=== PATIENT | male | born 1995 | race Caucasian/White ===

== ENCOUNTER 2017-04-20 18:34 | Emergency (ER) | payer SELFPAY ==
[2017-04-20 19:27] VITALS: BP 130/74
[2017-04-20] MEDS ORDERED: Tetan/Diph/Pertus SYR(Tdap)* 0.5 ML SYR(BOOSTRIX) use SYR IM ONE (20:11)
[2017-04-20] MEDS ORDERED: Lidocaine 1% MPF* 2 ML VIAL INJ ONE (20:12)
--- NOTE | 2017-04-20 21:07 | UC ---
Laceration HPI - HPI Summary HPI Summary: Right middle finger laceration happened about 1 hour ago at work - History Of Current Complaint Chief Complaint: UCLaceration Stated Complaint: FINGER LACERATION Time Seen by Provider: 04/20/17 20:05 Hx Obtained From: Patient Mechanism Of Injury: Sharp Trauma Onset/Duration: Sudden Onset Severity: Mild Aggravating Factors: Nothing Related History: Occupational Injury, Dominant Hand Right - Allergies/Home Medications Allergies/Adverse Reactions: Allergies Allergy/AdvReac Type Severity Reaction Status Date / Time No Known Allergies Allergy Verified 04/20/17 19:27 Home Medications: Home Medications Quetiapine Fumarate [Seroquel] 200 mg PO QPM 04/20/17 [History Confirmed ] PMH/Surg Hx/FS Hx/Imm Hx Previously Healthy: No Psychological History: Depression - Surgical History Surgical History: None - Family History Known Family History: Positive: Other - BROTHER NEARLY LETHAL SUICIDE ATTEMPT RECENTLY - Social History Occupation: Employed Full-time Lives: Alone Alcohol Use: Daily Alcohol Amount: 1-2 beers daily Substance Use Type: None Substance Use Comment - Amount & Last Used: every now and then Smoking Status (MU): Current Every Day Smoker Type: Cigarettes Amount Used/How Often: 1/2 PPD Length of Time of Smoking/Using Tobacco: 5 years Have You Smoked in the Last Year: Yes - Immunization History Most Recent Influenza Vaccination: fall 2013 Most Recent Tetanus Shot: < 5 YEARS ( OF 04/20/17) Most Recent Pneumonia Vaccination: unknown Review of Systems Constitutional: Negative Skin: Other - laceration right middle finger no deficits Eyes: Negative ENT: Negative Respiratory: Negative Cardiovascular: Negative Gastrointestinal: Negative Genitourinary: Negative Motor: Negative Neurovascular: Negative Musculoskeletal: Negative Neurological: Negative Psychological: Negative Is Patient Immunocompromised?: No All Other Systems Reviewed And Are Negative: Yes Physical Exam Triage Information Reviewed: Yes Appearance: Well-Appearing, No Pain Distress, Well-Nourished Vital Signs: Initial Vital Signs Temp 97.9 F 04/20/17 19:24 Pulse 93 04/20/17 19:24 Resp 16 04/20/17 19:24 BP 130/74 04/20/17 19:24 Pulse Ox 100 04/20/17 19:24 Vital Signs Reviewed: Yes Eye Exam: Normal Eyes: Positive: Conjunctiva Clear ENT Exam: Normal ENT: Positive: Normal ENT inspection, Hearing grossly normal. Negative: Nasal congestion, Nasal drainage, Trismus, Muffled voice, Hoarse voice Dental Exam: Normal Neck exam: Normal Neck: Positive: Supple, Nontender Respiratory Exam: Normal Respiratory: Positive: Chest non-tender, Lungs clear, Normal breath sounds, No respiratory distress, No accessory muscle use Cardiovascular Exam: Normal Cardiovascular: Positive: RRR, No Murmur, Pulses Normal, Brisk Capillary Refill Musculoskeletal Exam: Normal Musculoskeletal: Positive: Strength Intact, ROM Intact, No Edema Neurological Exam: Normal Neurological: Positive: Alert, Muscle Tone Normal Psychological Exam: Normal Skin Exam: Normal Laceration Repair - Laceration Repair 1 Description: Linear Laceration Size After Repair: Length (cm) - <2.5cm Modified For Repair: No Type Injection: Digital Anesthesia Used: 1.0% Lido Cleansing Completed Via Routine Prep: Yes Irrigation With Pressure Irrigation Device: Yes Closure Material: Sutures Closure Method: Single Layer Suture Of: Skin Suture Type: Prolene Laceration Course/Dx - Course/Dx Course Of Treatment: return in 10 days for suture removal, daily soap and water wash, up date tetanus - Differential Dx - Laceration/Wound Provider Diagnoses: <2.5 cm laceration with suture repair Discharge - Discharge Plan Condition: Stable Disposition: HOME Patient Education Materials: Ibuprofen (By mouth), Diphtheria/Acellular Pertussis/Tetanus Booster Vaccine (By injection), Finger Laceration (ED) Referrals: No Primary Care Phys,NOPCP [Primary Care Provider] - Additional Instructions: Return in 10 days for suture removal
== END 2017-04-20 21:38 | disposition home or self-care (01) ==
LOC: UCEAST 18:34
DX: S61.212A Laceration without foreign body of right middle finger without damage to nail, initial encounter (principal); W26.9XXA Contact with unspecified sharp object(s), initial encounter; Y93.9 Activity, unspecified; Y92.89 Other specified places as the place of occurrence of the external cause; Y99.0 Civilian activity done for income or pay; Z23 Encounter for immunization; F32.9 Major depressive disorder, single episode, unspecified; F17.210 Nicotine dependence, cigarettes, uncomplicated
CPT/HCPCS: 12001; 90471; 90715; 99211; G0463